=== PATIENT | female | born 1950 | race Caucasian/White ===

== ENCOUNTER 2017-12-04 08:45 | Outpatient (CLI) | payer OTHER ==
--- NOTE | 2017-12-04 14:23 | NM ---
NUCLEAR MEDICINE BRAIN IMAGING: Date: 12/04/17 HISTORY: Vascular Parkinson's, change in cognitive behavior, tremors, imbalance in gait and falls. TECHNIQUE: A DaTscan with axial tomographic images of the brain was obtained 3 hours following the intravenous a dministration of 14.5 mCi Iodine-123 Ioflupane. The patient was treated with 130 mg of potassium iodi de orally 1 hour prior to the injection. FINDINGS: There is loss of symmetry in the tracer localization in the striata bilaterally with a comma shape on the left and oval shape on the right. IMPRESSION: Findings are consistent with Parkinsonian syndrome. POS: [facility]
== END 2017-12-04 08:46 | disposition home or self-care (01) ==
LOC: NM 08:45
PROVIDERS: ATTEND Psychiatry & Neurology Neurology
DX: G21.4 Vascular parkinsonism (principal)
CPT/HCPCS: 78607; A9584

== ENCOUNTER 2018-01-14 16:23 | Inpatient (IN) | payer OTHER ==
[~2018-01-14 16:23] MED LIST: Dexamethasone 20 MG/5 ML VIAL ONE; Lidocaine 1% PF 5 ML VIAL ONE; Ondansetron HCl/PF 4 MG/2 ML Vial ONE; PHENYLEPHRINE-NS 100 MCG/ML 10 ML SYRINGE ONE; PROPOFOL 200 MG/20 ML VIAL ONE; Succinylcholine Chloride 20 MG/ML 10 ml SYRINGE FS ONE; ePHEDrine/0.9% NaCl/PF SYRINGE 50 mg/10 ml ONE
[2018-01-14 17:57] LABS: ALT (SGPT) 8 U/L (8-55); AST (SGOT) 10 U/L (5-34); Albumin 3.8 g/dL (3.4-4.8); Alkaline Phosphatase 96 U/L (40-150); Anion Gap 14 mmol/L (10-20); BUN (Urea Nitrogen) 10 mg/dL (9.8-20.1); Bilirubin, Total 0.8 mg/dL (0.2-1.2); Calc. Creatinine Clearance 0 mL/min (70-130); Calcium 9.3 mg/dL (7.8-10.44); Carbon Dioxide 22 mmol/L (23-31); Chloride 100 mmol/L (98-107); Estimated GFR-MDRD 49; Globulin 3.1 g/dL (2.4-3.5); Glucose 198 mg/dL (80-115); Lipase 16 U/L (8-78); Potassium 3.9 mmol/L (3.5-5.1); Protein, Total 6.9 g/dL (6.0-8.3); Sodium 132 mmol/L (136-145)
[2018-01-14 18:01] LABS: Hemoglobin 13.9 g/dL (12.0-16.0); Mean Corpuscular HGB CONC 33.9 g/dL (32.0-36.0); Mean Corpuscular Hemoglobin 29.3 pg (27.0-31.0); Mean Corpuscular Volume 86.4 fl (81.0-99.0); Platelet Count 244 thou/uL (130-400); RBC Distribution Width 11.8 % (11.5-14.5); Red Blood Cell (RBC) Count 4.73 mill/uL (4.20-5.40); White Blood Cell (WBC) Count 20.2 thou/uL (4.8-10.8)
[2018-01-14 18:14] LABS: Band 9 % (5-11); Lymphocytes 11 % (21-51); MDiff Complete? YES; Monocytes 5 % (0-10); Neutrophil 74 % (42-75); PLT Morphology Comment Appears Adequate; RBC Morphology Normal; Reactive Lymphocytes 1 % (0-10)
[2018-01-14 18:41] LABS: CKMB 0.3 ng/mL (0-6.6); Troponin I Less than 0.010 ng/mL (< 0.028)
[2018-01-14 18:49] LABS: Bilirubin Small (Negative); Blood, Urine Trace (Negative); Glucose, Urine (Dipstick) Negative (Negative); Leukocyte Moderate (Negative); Nitrite Positive (Negative); Protein, Urine (Dipstick) 30 mg/dL (Neg-Trace); Specific Gravity, Urine 1.025 (1.005-1.030); Urobilinogen 0.2 mg/dL (0.2-1.0)
[2018-01-14 18:50] LABS: Bacteria/HPF 4+ HPF (None Seen)
[2018-01-14 18:51] LABS: Clarity Cloudy (Clear)
[2018-01-14 18:52] LABS: Pathc Cast-AUWi Flag 6.19 (0-2.49); Yeast-AUWi Flag 54.7 (0-25.0)
[2018-01-14 19:01] LABS: Hyaline Casts/LPF 0-3 HYALINE CAST LPF (0-3 Hyaline); Other Casts/LPF None Seen LPF (0-3 Hyaline)
[2018-01-14 19:02] LABS: Crystals/HPF None Seen HPF (Negative); Yeast-All Forms None Seen HPF (None Seen)
--- NOTE | 2018-01-14 19:36 | CT ---
CT OF THE ABDOMEN AND PELVIS WITHOUT CONTRAST 01/14/18 COMPARISON: None. HISTORY: Left sided abdominal pain. Possible diabetic ketoacidosis. Suprapubic abdominal pain and vaginal disc harge. History of kidney stones. TECHNIQUE: Multiple contiguous axial images were obtained in a CT of the abdomen and pelvis without contrast. Co tonya reformats were performed. FINDINGS: There is a 6 mm calcification in the mid portion of the left ureter with moderate left hydronephrosis . A small 4 mm calcification is seen in the lower pole of the left kidney. No other calcifications ar e seen in either renal collecting system and no calcifications are seen in the right kidney. No calci fications are seen in the urinary bladder. The liver, gallbladder, adrenal glands, spleen, and pancreas are unremarkable. No free air, free flui d or stranding changes are seen in the abdomen or pelvis. The reproductive organs are unremarkable. The large and small bowel are unremarkable. The appendix is normal. No abdominal or pelvic lymphadenopathy are seen. Atherosclerotic calcifications are seen in the aorta. Degenerative changes are seen in the spine. The visualized inferior thorax and abdominal wall soft ti ssues are unremarkable. IMPRESSION: 1. Left mid ureteral calcification with moderate left hydronephrosis. 2. Nonobstructing left renal calcification. POS: [facility]
[2018-01-14] MEDS ORDERED: Acetaminophen 500 MG TAB ONE (19:48)
[2018-01-14] MEDS ORDERED: Ondansetron HCl/PF 4 MG/2 ML Vial IVP PRN ×5 (20:41→22:28)
[2018-01-14] MEDS ORDERED: HumaLOG 300 UNITS/3 ML VIAL SC PRN ×2 (20:41)
[2018-01-14] MEDS ORDERED: Dextrose 50% Abboject 50 ML SYRINGE SLOW IVP PRN (20:41)
[2018-01-14] MEDS ORDERED: Dextrose 5% in Water 1,000 ML IV PRN (20:41)
[2018-01-14] MEDS ORDERED: Iothalamate Meglumine 60% 50 ML VIAL FS ONE (20:50)
[2018-01-14] MEDS ORDERED: Fentanyl 250 MCG/5 ML VIAL ONE (21:18)
[2018-01-14] MEDS ORDERED: Meropenem 2 GM in Sodium Chloride 0.9% 100 ML IVPB SCH (21:30)
[2018-01-14] MEDS ORDERED: Promethazine HCl 25 MG/ML VIAL SLOW IVP PRN ×4 (22:14→22:28)
[2018-01-14] MEDS ORDERED: Promethazine HCl 25 MG/ML VIAL IM PRN ×4 (22:14→22:28)
[2018-01-14] MEDS ORDERED: Morphine Sulfate 2 MG/ML SYRINGE SLOW IVP PRN ×2 (22:28)
--- NOTE | 2018-01-14 22:35 | RAD ---
RETROGRADE IVP 01/14/18 COMPARISON: CT abdomen/pelvis 01/14/18. HISTORY: Left sided hydronephrosis and sepsis. Left ureteral calcification. FINDINGS/IMPRESSION: Multiple limited intraoperative fluoroscopic views from retrograde IVP were submitted for interpretat ion. A wire is seen on the first image. This is eventually followed by a double-J ureteral stent whic h appears in good position. The calcifications seen on CT is not obviously seen on these limited fluo roscopic images. POS: [facility]
[2018-01-14] MEDS: Sodium Chloride 0.9% 1,000 ML IV SCH (23:00)
[2018-01-14 23:19] VITALS: BMI 31.9
[2018-01-14] MEDS ORDERED: Vancomycin HCl 1.25 GM in Sodium Chloride 0.9% 250 ML 250 ML IVPB SCH (23:45)
[2018-01-14] MEDS: Famotidine/PF 20 mg/2ml Vial SLOW IVP SCH (23:48)
--- NOTE | 2018-01-15 00:31 | HP ---
REASON FOR ADMISSION: Sepsis, left moderate hydronephrosis with ureterolithiasis. HISTORY OF PRESENT ILLNESS: Patient came to ER with complaints of left-sided abdominal pain in the lower quadrant going towards her groin. This has been off and on from last two weeks. She finally made it to emergency room today as the pain was getting worse. On arrival, she had a temperature of 101.4. The patient has had a CAT scan done which shows left mid ureteral calcification with moderate left hydronephrosis. The patient also had a white count of 20 and has had cultures drawn, given one dose of ceftriaxone 2 grams here. No complaints of cough or expectoration. No complaints of chest pain, palpitation , PND, or orthopnea. Patient normally ambulates with a cane. The patient states she has had prior history of stone in her kidneys and has had laser done for it, does not recall who the urologist was. PAST MEDICAL AND SURGICAL HISTORY: History of dementia, Parkinson disease, depression, diabetes mellitus type 2, hypertension, dyslipidemia, hernia repair. CURRENT MEDICATIONS: The patient is on gabapentin 300 mg p.o. 3 times daily, bupropion extended release 300 mg q.a.m., sertraline 200 mg daily, clonazepam 1 mg twice daily, omega 3 fatty acids 2 grams p.o. twice daily, aspirin 81 mg daily, trazodone at bedtime, donepezil 23 mg daily, atorvastatin 20 mg at bedtime, Nexium 40 mg at bedtime, potassium chloride extended release 20 mEq daily, cyclobenzaprine p.r.n., metformin 500 mg p.o. twice daily, topiramate 50 mg p.o. twice daily, Sinemet 25/100 mg twice daily, Seroquel 300 mg at bedtime, Levemir 5 units q.a.m. and 10 units q.p.m., multivitamin 1 tab once daily. ALLERGIES: No known drug allergies. PERSONAL HISTORY: Does not abuse alcohol or drugs. The patient quit smoking 20 years ago, prior to which has smoked one pack a day for nearly 30 years. She stays with her daughter, ambulates with a cane. FAMILY HISTORY: The patient does not know much about her mother, father at the age of 78 years and has had history of coronary artery disease. Power of assistant prosecuting attorney is her daughter, her name is Rachelle Jauregui. REVIEW OF SYSTEMS: The following complete review of systems was negative, unless otherwise mentioned in the HPI or below: Constitutional: Weight loss or gain, ability to conduct usual activities. Skin: Rash, itching. Eyes: Double vision, pain. ENT/Mouth: Nose bleeding, neck stiffness, pain, tenderness. Cardiovascular: Palpitations, dyspnea on exertion, orthopnea. Respiratory: Shortness of breath, wheezing, cough, hemoptysis, fever or night sweats. Gastrointestinal: Poor appetite, abdominal pain, heartburn, nausea, vomiting, constipation, or diarrhea. Genitourinary: Urgency, frequency, dysuria, nocturia. Musculoskeletal: Pain, swelling. Neurologic/Psychiatric: Anxiety, depression. Allergy/Immunologic: Skin rash, bleeding tendency. PHYSICAL EXAMINATION: GENERAL: The patient is a 67-year-old female who is currently not in any pain. VITAL SIGNS: Blood pressure 124/76, pulse 96 per minute, respiratory rate 20 per minute, temperature 101.4 rectal on arrival, saturating 95% on room air. NECK: Supple. No elevated JVD. HEENT: Eyes, extraocular muscles intact. Pupils reacting to light. Oral cavity mucous membranes are dry. No exudates or congestion. CARDIOVASCULAR: S1, S2 heard. Regular rhythm. RESPIRATORY: Air entry 1+ bilaterally. No rales or rhonchi. ABDOMEN: Soft, bowel sounds heard. No tenderness, rigidity, or guarding. No CVA angle tenderness. EXTREMITIES: No peripheral edema or calf tenderness. VASCULAR: Peripheral pulses 1+ bilateral. No ischemic ulcerations or gangrene. CENTRAL NERVOUS SYSTEM: No gross focal deficits seen. Patient is awake and fairly oriented, but she does have issues with memory and cannot recall some events including medications. PSYCHIATRIC: No obvious hallucinations or delusions. LABORATORY AND X-RAY FINDINGS: White count of 20, H and H 13 and 40, platelet count 244,000, MCV is 86 with 74% neutrophils, 9% bands. Sodium 132, serum bicarbonate 22, BUN 10, creatinine 1.1, serum glucose 198. Lactic acid 2.4. Liver enzymes within normal limits. First set of cardiac enzymes are negative. Lipase is 16. UA shows positive nitrite, moderate leukocyte esterase, greater than 50 wbc's and 4+ bacteria. CT abdomen and pelvis done shows left mid ureteral calcification with moderate left hydronephrosis. There is nonobstructing left renal calcification as well. EKG done shows sinus tachycardia at 102 beats per minute. There is nonspecific ST-T wave changes. CLINICAL IMPRESSION AND PLAN: The patient will be admitted to IMCU for sepsis with left hydronephrosis with a stone on the left side. I have spoken to Dr. Tompkins who will be doing a cystoscopy with likely stenting tonight. She will be kept n.p.o. for the procedure as patient might get worse with instrumentation tonight, she will be placed in IMCU. She will be on normal saline at 100 mL per hour. She has received 2 grams of ceftriaxone in the ER and will also add Levaquin along with vancomycin for now. Blood and urine cultures have been obtained. Please note patient is on multiple psychotropic medications and accurate medication list needs to be obtained in the morning from her pharmacy. We will continue to closely monitor her in IMCU. I have spoken to Ms. Rachelle Jauregui daughter who patient is staying now, the number to reach her is [phone] and have given a complete update. CODE STATUS: FULL. MTDD
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
--- NOTE | 2018-01-15 03:01 | OP ---
DATE OF SERVICE: 01/14/2018 PREOPERATIVE DIAGNOSES: 1. A 67-year-old female with history of fever, leukocytosis with left hydronephrosis secondary to 6 mm left proximal ureteral calculi at the level of L3-L4. 2. Nonobstructing left lower pole stone measuring 4 mm. POSTOPERATIVE DIAGNOSES: 1. A 67-year-old female with history of fever, leukocytosis with left hydronephrosis secondary to 6 mm left proximal ureteral calculi at the level of L3-L4. 2. Nonobstructing left lower pole stone measuring 4 mm. PROCEDURE: Cystoscopy, left 6 x 24 double-J ureteral stent. ANESTHESIA: General. COMPLICATIONS: None apparent. DISPOSITION: To the recovery room. INDICATIONS FOR THE PROCEDURE AND HISTORY: Ms. Jauregui is a 67-year-old female who presented to the emergency room with 1-2 week history of left flank pain, subjective history of malaise, found to have leukocytosis of 20,000, urinalysis consistent with UTI, lactic acid of 2.[address] demonstrating left hydronephrosis secondary to mid ureteral calculi. The patient with history of diabetes, presented with temperature of 101.4. She is hemodynamically stable; however, given the clinical scenario of early sepsis/SIRS, advised regarding cystoscopy, left stent placement. Risks and complications, indications was reviewed with patient and daughter in detail and she desired to proceed. Risks and complications including, but not limited to, bleeding, pain, infection, urosepsis, perioperative morbidity and mortality, and the need for secondary procedure of a staged ureteroscopy, laser lithotripsy at a later date was discussed with patient in detail. Indication for emergent surgical intervention to decompress the left collecting system due to infective ureteral stone with hydronephrosis with discussed with patient/daughter in detail. DESCRIPTION OF THE PROCEDURE: After an informed consent is signed, the patient is taken to the operating room, placed in a dorsal lithotomy position with the genital area prepped and draped in usual surgical sterile fashion. A 22 Urdu cystoscope was utilized for cystoscopy. Bilateral CHARLIE hose, SCDs, and broad- spectrum antibiotics with meropenem were provided. Upon entering the bladder, there was debris within the bladder consistent with cystitis. The UO was identified in normal anatomical location. An open-ended catheter was utilized to intubate the left UO and a 0.35 sensor wire was placed to the level of the left upper pole. I did not perform a retrograde, given her clinical scenario presenting UTI. A 6 x 24 double-J ureteral stent was passed without difficulty. Bladder was completely emptied. A 16 Urdu 10 mL Olivas catheter was placed. As there is concern regarding early sepsis, patient will be observed in an IMCU setting with broad spectrum antibiotics and strict control of her diabetes. GABRIEL
[2018-01-15 04:13] LABS: #Lymphocytes 1.3 thou/uL (1.20-3.40); #Monocytes 0.8 thou/uL (0.11-0.59); #Neutrophils 9.9 thou/uL (1.40-6.50); %Eosinophils 0.3 % (0.0-10.0); %Lymphocytes 10.8 % (21.0-51.0); %Monocytes 6.5 % (0.0-10.0); %Neutrophils 82.4 % (42.0-75.0); Hemoglobin 12.2 g/dL (12.0-16.0); Mean Corpuscular HGB CONC 32.4 g/dL (32.0-36.0); Mean Corpuscular Volume 89.3 fl (81.0-99.0); Platelet Count 198 thou/uL (130-400); RBC Distribution Width 11.7 % (11.5-14.5); Red Blood Cell (RBC) Count 4.23 mill/uL (4.20-5.40)
[2018-01-15 04:30] LABS: Anion Gap 12 mmol/L (10-20); BUN (Urea Nitrogen) 9 mg/dL (9.8-20.1); Calc. Creatinine Clearance 80 mL/min (70-130); Calcium 8.5 mg/dL (7.8-10.44); Carbon Dioxide 22 mmol/L (23-31); Chloride 109 mmol/L (98-107); Estimated GFR-MDRD 64; Glucose 242 mg/dL (80-115); Potassium 4.7 mmol/L (3.5-5.1); Sodium 138 mmol/L (136-145)
[2018-01-15] MEDS: Sodium Chloride 0.9% 1,000 ML IV SCH ×2 (05:58→16:12)
[2018-01-15] MEDS: Acetaminophen 325 MG TAB PO PRN (07:30)
--- NOTE | 2018-01-15 08:17 | PRG ---
DATE OF SERVICE: 01/15/2018 SUBJECTIVE: The patient is alert, states that her flank pain has significantly improved. Denies chills. PHYSICAL EXAMINATION: VITAL SIGNS: Stable, afebrile, 98.2, 85, 16, 96, 115/65. I's and O's 877 in, 1500 out. She is negative 6.23 liters. ABDOMEN: Soft, obese, protuberant. No significant flank or abdominal discomfort is appreciated. GENITOURINARY: Olivas catheter secured demonstrating clear dilute urine. PERTINENT LABORATORY DATA: White count is decreased from 20,000->12,000, hemoglobin 12, platelet 193, 82 segs. Renal function improved from creatinine of 1.1->0.8, which is her baseline. Blood sugars have been running, 150-224. Lactic acid level this morning has normalized. IMPRESSION AND PLAN: Ms. Jauregui is a 67-year-old female with history of dementia , diabetes, Parkinson's, who presented with history of fever of 101.4, leukocytosis with obstructing left ureteral stone. 1. Left hydronephrosis secondary to 6 mm left proximal ureteral calculi, nonobstructing left lower pole stone, 4 mm, postop day #1 status post left ureteral stent. The patient is convalescing well. Her septic /SIRS parameters have significantly improved with improvement of her leukocytosis. From a urologic perspective, patient may be transferred to a regular floor. Recommend patient to stay in house until urine culture sensitivity returns for appropriate oral atb transition. Currently on Levaquin and vancomycin per primary service. She is responding, may continue current antibiotic regimen. As she is hemodynamically stable, Olivas catheter may be removed with strict I's and O's to be continued. MTDD
[2018-01-15] MEDS ORDERED: Non-Formulary Item 1 EACH (Levemir Flexpen [Levemir Flexpen] 10 UNIT) SC SCH ×2 (09:00)
[2018-01-15] MEDS: Famotidine/PF 20 mg/2ml Vial SLOW IVP SCH ×2 (10:07→20:48)
[2018-01-15] MEDS: Docusate 100 MG CAP PO SCH (10:08)
[2018-01-15] MEDS: Bupropion 150 MG XL TAB PO SCH (10:08)
[2018-01-15] MEDS: Insulin Detemir 100 UNITS/ML 10 UNITS in Pre-Filled Syringe 1 EACH SC SCH (10:09)
[2018-01-15] MEDS ORDERED: cefTRIAXone\\ROCEPHIN 2 GM in Sodium Chloride 0.9% 100 ML IVPB SCH (20:00)
[2018-01-15] MEDS ORDERED: Vancomycin HCl 1.25 GM in Sodium Chloride 0.9% 250 ML 250 ML IVPB SCH (22:00)
[2018-01-16] MEDS: Acetaminophen 325 MG TAB PO PRN ×2 (01:10→10:16)
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
[2018-01-16] MEDS: Sodium Chloride 0.9% 1,000 ML IV SCH ×2 (05:43→17:54)
[2018-01-16] MEDS ORDERED: HYDROcodone/Acetaminophen 5/325 mg Tablet PO PRN ×2 (07:58)
--- NOTE | 2018-01-16 08:34 | PRG ---
DATE OF SERVICE: 01/16/2018 SUBJECTIVE: The patient denies history of fever and chills, feels better; however, has some left mid lower quadrant abdominal discomfort, likely consistent with stent discomfort. However, the patient has been not provide any pain medication upon medication review. Denies fever. PHYSICAL EXAMINATION: VITAL SIGNS: Stable, afebrile, 98.6, 82, 16, 98, 141/79. The patient has also been incontinent. Strict I's and O's have been difficult. ABDOMEN: Soft. There is no rigidity, no rebound, no CVA tenderness is appreciated. PERTINENT LABORATORY: Yesterday her white count did decrease to 12, hemoglobin 12, platelet 198. Renal function stable at 0.8 yesterday. Final urine culture results E. coli which is pansensitive. Blood culture is negative. ASSESSMENT AND PLAN: Ms. Jauregui is a 67-year-old female with past medical history of: 1. Parkinson's. 2. Diabetes. She presented with fever, leukocytosis secondary to urinary tract infection with obstructing left ureteral stone. She is postop day #2 status post cystoscopy, left stent. We will obtain KUB this morning for staging. Final culture has been resulted which demonstrates E. coli pansensitive, blood culture negative. As such, the patient may be discharged with ciprofloxacin for a course of 14 days. She will follow up in my office next Saturday at 1:45 in which a repeat UA and C&S will be obtained, if negative, we will proceed with staged ureteroscopy, laser lithotripsy. The patient has been informed. Appointment in chart. I also provided prescription which include ciprofloxacin for 14 days, Myrbetriq 50 mg 1 p.o. daily for bladder spasms, [place]) p.r.n. Trina Newton prescription in chart. Discontinue vancomycin and Rocephin , continue Levaquin while in house. Discharge when medically stable. will sign off MTDD
--- NOTE | 2018-01-16 08:45 | PDOC.PN ---
- Subjective Encounter Start Date: 01/15/18 Encounter Start Time: 15:00 Subjective: nsg notes rev, dayana ovn, no new c/o, d/w patient's dtr on the phone -: overall feels better, still some abd discomfort but less so than on adm -: tolerating PO, no BM today yet, no fevers/ chills - Objective Vital Signs & Weight: Vital Signs (12 hours) Temp Pulse Resp BP BP Pulse Ox 01/16/18 07:34 98.6 F 82 16 98 01/16/18 07:20 98.6 F 82 16 141/79 H 98 01/16/18 04:00 97.8 F 75 18 132/65 95 01/16/18 00:00 99 F 77 18 127/64 96 Weight Weight 174 lb 12.8 oz I&O: 01/15/18 01/16/18 01/17/18 06:59 06:59 06:59 Intake Total 877 1920 Output Total 1500 750 Balance -623 1170 Result Diagrams: 01/15/18 03:38 01/15/18 03:38 Additional Labs: Accuchecks 01/16/18 01/16/18 01/15/18 05:47 00:02 18:33 POC Glucose 93 102 83 01/15/18 11:41 POC Glucose 129 H Phys Exam - Physical Examination Constitutional: NAD HEENT: PERRLA, moist MMs, sclera anicteric Neck: no nodes Respiratory: no wheezing, no rales, no rhonchi, clear to auscultation bilateral Cardiovascular: RRR, no significant murmur, no rub Gastrointestinal: soft, no distention, positive bowel sounds Musculoskeletal: no edema, pulses present Neurological: moves all 4 limbs Dx/Plan - Plan * 67F who p/w abd pain * * nephrolithiasis with hydronephrosis and complicated UTI * pending culture sensitivities * continue empiric abx * apprec urology c/s * s/p stent * pain control sepsis on adm, resolved extensive psychiatric hx - continue home regimen diet: as callum activity: as callum dvt ppx Review of Systems - Medications/Allergies Allergies/Adverse Reactions: Allergies Allergy/AdvReac Type Severity Reaction Status Date / Time No Known Drug Allergies Allergy Verified 01/25/17 00:34 Medications: Current Medications Acetaminophen (Tylenol) 650 mg PO Q4H PRN PRN Reason: Headache/Fever or Pain Last Admin: 01/16/18 10:16 Dose: 650 mg Hydrocodone Bitart/Acetaminophen ([place] 5/325) 1 tab PO Q4H PRN PRN Reason: Mild Pain (1-3) Hydrocodone Bitart/Acetaminophen ([place] 5/325) 2 tab PO Q4H PRN PRN Reason: Moderate Pain (4-6) Bupropion HCl (Wellbutrin Xl) 300 mg PO DAILY [facility] Last Admin: 01/16/18 10:09 Dose: 300 mg Dextrose/Water (Dextrose 50%) 25 gm SLOW IVP PRN PRN PRN Reason: Hypoglycemia Docusate Sodium (Colace) 100 mg PO DAILY [facility] Last Admin: 01/16/18 10:10 Dose: Not Given Docusate Sodium (Colace) 100 mg PO BID [facility] Last Admin: 01/16/18 10:10 Dose: Not Given Famotidine (Pepcid) 20 mg SLOW IVP Q12HR [facility] Last Admin: 01/16/18 10:10 Dose: 20 mg Glucagon (Glucagon) 1 mg IM PRN PRN PRN Reason: Hypoglycemia Dextrose/Water (D5w) 1,000 mls @ 0 mls/hr IV .Q0M PRN; As Directed PRN Reason: Hypoglycemia Levofloxacin 500 mg/ Device 100 mls @ 100 mls/hr IVPB Q24HR [facility] Last Admin: 01/15/18 21:48 Dose: 100 mls Sodium Chloride (Normal Saline 0.9%) 1,000 mls @ 100 mls/hr IV .Q10H [facility] Last Admin: 01/16/18 05:43 Dose: 1,000 mls Insulin Detemir 10 units/ (Miscellaneous Medication) 0.1 mls @ 0 mls/hr SC QAM [facility] Last Admin: 01/16/18 10:10 Dose: 0.1 mls Insulin Human Lispro (Humalog) 0 units SC .MILD SLIDING SCALE PRN PRN Reason: Mild Correctional Scale Insulin Human Lispro (Humalog) 0 units SC .BEDTIME SLIDING SC PRN PRN Reason: Bedtime Correctional Scale Mirabegron (Myrbetriq Er) 25 mg PO DAILY [facility] Last Admin: 01/16/18 10:11 Dose: 25 mg Ondansetron HCl (Zofran) 4 mg IVP Q6H PRN PRN Reason: Nausea/Vomiting Donepezil Hcl 23 Mg 0 each PO DAILY [facility] Sertraline HCl (Zoloft) 100 mg PO QAM [facility] Last Admin: 01/16/18 10:11 Dose: 100 mg Sodium Chloride (Flush - Normal Saline) 10 ml IVF Q12HR [facility] Last Admin: 01/16/18 10:12 Dose: Not Given Sodium Chloride (Flush - Normal Saline) 10 ml IVF PRN PRN PRN Reason: Saline Flush
--- NOTE | 2018-01-16 09:07 | RAD ---
SUPINE KUB: Date: 01-16-18 Comparison: 01-14-18 History: Left ureteral stent. FINDINGS: A left double J ureteral stent is in place. Evaluation of the region of the left renal shadow is limi daron on the basis of stool and bowel gas within the colon. There is no discrete calcification seen minesh ng the course of the left double J ureteral stent. There is multilevel lower lumbar spine degenerativ e change. The bowel gas pattern appears nonobstructed. IMPRESSION: Left double J ureteral stent in place. POS: [facility]
[2018-01-16] MEDS: Bupropion 150 MG XL TAB PO SCH (10:09)
[2018-01-16] MEDS: Insulin Detemir 100 UNITS/ML 10 UNITS in Pre-Filled Syringe 1 EACH SC SCH (10:10)
[2018-01-16] MEDS: Famotidine/PF 20 mg/2ml Vial SLOW IVP SCH ×2 (10:10→21:14)
[2018-01-16] MEDS: Docusate 100 MG CAP PO SCH ×3 (10:10→21:16)
--- NOTE | 2018-01-16 16:38 | PDOC.PN ---
- Subjective Encounter Start Date: 01/16/18 Encounter Start Time: 13:00 Subjective: nsg notes rev, dayana ovn, no new c/o, no fevers/ chills, overall feels a -: little better, wnats to know if she can get "one more dose of the strong -: IV meds" - Objective Vital Signs & Weight: Vital Signs (12 hours) Temp Pulse Resp BP Pulse Ox 01/16/18 11:29 97.7 F 74 14 140/66 98 01/16/18 07:34 98.6 F 82 16 98 01/16/18 07:20 98.6 F 82 16 141/79 H 98 Weight Weight 174 lb 12.8 oz I&O: 01/15/18 01/16/18 01/17/18 06:59 06:59 06:59 Intake Total 877 1920 1020 Output Total 1500 750 Balance -623 1170 1020 Result Diagrams: 01/15/18 03:38 01/15/18 03:38 Additional Labs: Accuchecks 01/16/18 01/16/18 01/16/18 11:20 05:47 00:02 POC Glucose 113 H 93 102 01/15/18 18:33 POC Glucose 83 Phys Exam - Physical Examination Constitutional: NAD HEENT: PERRLA, moist MMs, sclera anicteric Respiratory: no wheezing, no rales, no rhonchi, clear to auscultation bilateral Cardiovascular: RRR, no significant murmur, no rub Gastrointestinal: soft, no distention, positive bowel sounds slightly tender to deep palpation of RLQ Musculoskeletal: no edema, pulses present Neurological: moves all 4 limbs Psychiatric: normal affect, A&O x 3 Dx/Plan - Plan * 67F who p/w abd pain * * nephrolithiasis with hydronephrosis and complicated UTI * urine culture humphrey sensitive * blood culture NGTD * transition IV to PO abx * apprec urology c/s * s/p stent * pain control sepsis on adm, resolved extensive psychiatric hx - continue home regimen diet: as callum activity: as callum dvt ppx Review of Systems - Medications/Allergies Allergies/Adverse Reactions: Allergies Allergy/AdvReac Type Severity Reaction Status Date / Time No Known Drug Allergies Allergy Verified 01/25/17 00:34 Medications: Current Medications Acetaminophen (Tylenol) 650 mg PO Q4H PRN PRN Reason: Headache/Fever or Pain Last Admin: 01/16/18 10:16 Dose: 650 mg Hydrocodone Bitart/Acetaminophen ([place] 5/325) 1 tab PO Q4H PRN PRN Reason: Mild Pain (1-3) Hydrocodone Bitart/Acetaminophen ([place] 5/325) 2 tab PO Q4H PRN PRN Reason: Moderate Pain (4-6) Bupropion HCl (Wellbutrin Xl) 300 mg PO DAILY [facility] Last Admin: 01/16/18 10:09 Dose: 300 mg Dextrose/Water (Dextrose 50%) 25 gm SLOW IVP PRN PRN PRN Reason: Hypoglycemia Docusate Sodium (Colace) 100 mg PO DAILY [facility] Last Admin: 01/16/18 10:10 Dose: Not Given Docusate Sodium (Colace) 100 mg PO BID [facility] Last Admin: 01/16/18 10:10 Dose: Not Given Famotidine (Pepcid) 20 mg SLOW IVP Q12HR [facility] Last Admin: 01/16/18 10:10 Dose: 20 mg Glucagon (Glucagon) 1 mg IM PRN PRN PRN Reason: Hypoglycemia Dextrose/Water (D5w) 1,000 mls @ 0 mls/hr IV .Q0M PRN; As Directed PRN Reason: Hypoglycemia Levofloxacin 500 mg/ Device 100 mls @ 100 mls/hr IVPB Q24HR [facility] Last Admin: 01/15/18 21:48 Dose: 100 mls Sodium Chloride (Normal Saline 0.9%) 1,000 mls @ 100 mls/hr IV .Q10H [facility] Last Admin: 01/16/18 05:43 Dose: 1,000 mls Insulin Detemir 10 units/ (Miscellaneous Medication) 0.1 mls @ 0 mls/hr SC QAM [facility] Last Admin: 01/16/18 10:10 Dose: 0.1 mls Insulin Human Lispro (Humalog) 0 units SC .MILD SLIDING SCALE PRN PRN Reason: Mild Correctional Scale Insulin Human Lispro (Humalog) 0 units SC .BEDTIME SLIDING SC PRN PRN Reason: Bedtime Correctional Scale Mirabegron (Myrbetriq Er) 25 mg PO DAILY [facility] Last Admin: 01/16/18 10:11 Dose: 25 mg Ondansetron HCl (Zofran) 4 mg IVP Q6H PRN PRN Reason: Nausea/Vomiting Donepezil Hcl 23 Mg 0 each PO DAILY [facility] Sertraline HCl (Zoloft) 100 mg PO QAM [facility] Last Admin: 01/16/18 10:11 Dose: 100 mg Sodium Chloride (Flush - Normal Saline) 10 ml IVF Q12HR [facility] Last Admin: 01/16/18 10:12 Dose: Not Given Sodium Chloride (Flush - Normal Saline) 10 ml IVF PRN PRN PRN Reason: Saline Flush
[2018-01-17] MEDS: Sodium Chloride 0.9% 1,000 ML IV SCH ×3 (00:09→14:46)
[2018-01-17] MEDS: Insulin Detemir 100 UNITS/ML 10 UNITS in Pre-Filled Syringe 1 EACH SC SCH (08:52)
[2018-01-17] MEDS: Bupropion 150 MG XL TAB PO SCH (08:53)
[2018-01-17] MEDS: Docusate 100 MG CAP PO SCH ×3 (08:53→20:41)
[2018-01-17] MEDS: Famotidine 20 MG TAB PO SCH ×2 (09:39→20:41)
[2018-01-17] MEDS: Famotidine/PF 20 mg/2ml Vial SLOW IVP SCH (10:09)
[2018-01-17 13:21] LABS: #Basophils 0.1 thou/uL (0.0-0.2); #Eosinphils 0.2 thou/uL (0.0-0.7); #Lymphocytes 2.3 thou/uL (1.20-3.40); #Neutrophils 4.3 thou/uL (1.40-6.50); %Basophils 0.7 % (0.0-1.0); %Eosinophils 3.1 % (0.0-10.0); %Lymphocytes 29.4 % (21.0-51.0); %Monocytes 12.5 % (0.0-10.0); %Neutrophils 54.2 % (42.0-75.0); Mean Corpuscular HGB CONC 34.4 g/dL (32.0-36.0); Mean Corpuscular Hemoglobin 30.4 pg (27.0-31.0); Mean Corpuscular Volume 88.3 fl (81.0-99.0); Platelet Count 287 thou/uL (130-400); RBC Distribution Width 11.6 % (11.5-14.5); Red Blood Cell (RBC) Count 3.94 mill/uL (4.20-5.40); White Blood Cell (WBC) Count 7.9 thou/uL (4.8-10.8)
[2018-01-17 13:43] LABS: Anion Gap 12 mmol/L (10-20); BUN (Urea Nitrogen) 4 mg/dL (9.8-20.1); Calc. Creatinine Clearance 99 mL/min (70-130); Calcium 8.5 mg/dL (7.8-10.44); Carbon Dioxide 24 mmol/L (23-31); Chloride 108 mmol/L (98-107); Estimated GFR-MDRD 83; Glucose 121 mg/dL (80-115); Sodium 141 mmol/L (136-145)
[2018-01-17 13:46] LABS: Potassium 2.9 mmol/L (3.5-5.1)
[2018-01-17] MEDS ORDERED: Potassium Chloride 20 MEQ TAB PO SCH ×2 (18:15)
[2018-01-17] MEDS: Acetaminophen 325 MG TAB PO PRN (19:42)
[2018-01-17] MEDS ORDERED: Donepezil HCl 10 MG TAB PO SCH (21:00)
--- NOTE | 2018-01-17 23:19 | PDOC.PN ---
- Subjective Encounter Start Date: 01/17/18 Encounter Start Time: 13:00 Subjective: nsg notes rev, dayana ovn, no new c/o, denies any cramping, abd -: pain from yesterday is improved - Objective Vital Signs & Weight: Vital Signs (12 hours) Temp Pulse Resp BP BP Pulse Ox 01/17/18 20:00 97.9 F 77 20 153/77 H 97 01/17/18 15:11 98.6 F 78 16 180/83 H 96 Weight Weight 174 lb 12.8 oz I&O: 01/16/18 01/17/18 01/18/18 06:59 06:59 06:59 Intake Total 1920 2220 Output Total 750 1300 Balance 1170 2220 -1300 Result Diagrams: 01/17/18 13:08 01/17/18 13:08 Additional Labs: Accuchecks 01/17/18 01/17/18 01/17/18 21:48 16:10 11:08 POC Glucose 107 85 164 H 01/17/18 06:15 POC Glucose 138 H Phys Exam - Physical Examination Constitutional: NAD HEENT: PERRLA, sclera anicteric Neck: no nodes Respiratory: no wheezing, no rales, no rhonchi, clear to auscultation bilateral Cardiovascular: RRR, no significant murmur, no rub Gastrointestinal: soft, non-tender, no distention, positive bowel sounds Neurological: moves all 4 limbs Dx/Plan - Plan * 67F who p/w abd pain * * nephrolithiasis with hydronephrosis and complicated UTI * urine culture humphrey sensitive * blood culture NGTD * transition IV to PO abx * apprec urology c/s * s/p stent * pain control - pain improved sepsis on adm, resolved extensive psychiatric hx - continue home regimen hypokalemia, unclear etiology * oral repletion * repeat BMP * continue monitor diet: as callum activity: as callum dvt ppx Review of Systems - Medications/Allergies Allergies/Adverse Reactions: Allergies Allergy/AdvReac Type Severity Reaction Status Date / Time No Known Drug Allergies Allergy Verified 01/25/17 00:34 Medications: Current Medications Acetaminophen (Tylenol) 650 mg PO Q4H PRN PRN Reason: Headache/Fever or Pain Last Admin: 01/17/18 19:42 Dose: 650 mg Hydrocodone Bitart/Acetaminophen ([place] 5/325) 1 tab PO Q4H PRN PRN Reason: Mild Pain (1-3) Hydrocodone Bitart/Acetaminophen ([place] 5/325) 2 tab PO Q4H PRN PRN Reason: Moderate Pain (4-6) Bupropion HCl (Wellbutrin Xl) 300 mg PO DAILY [facility] Last Admin: 01/17/18 08:53 Dose: 300 mg Dextrose/Water (Dextrose 50%) 25 gm SLOW IVP PRN PRN PRN Reason: Hypoglycemia Docusate Sodium (Colace) 100 mg PO DAILY [facility] Last Admin: 01/17/18 08:53 Dose: 100 mg Docusate Sodium (Colace) 100 mg PO BID [facility] Last Admin: 01/17/18 20:41 Dose: Not Given Donepezil HCl (Aricept) 20 mg PO HS [facility] Last Admin: 01/17/18 20:41 Dose: 20 mg Famotidine (Pepcid) 20 mg PO BID [facility] Last Admin: 01/17/18 20:41 Dose: 20 mg Glucagon (Glucagon) 1 mg IM PRN PRN PRN Reason: Hypoglycemia Dextrose/Water (D5w) 1,000 mls @ 0 mls/hr IV .Q0M PRN; As Directed PRN Reason: Hypoglycemia Sodium Chloride (Normal Saline 0.9%) 1,000 mls @ 100 mls/hr IV .Q10H [facility] Last Admin: 01/17/18 14:46 Dose: 1,000 mls Insulin Detemir 10 units/ (Miscellaneous Medication) 0.1 mls @ 0 mls/[facility] Last Admin: 01/17/18 08:52 Dose: 0.1 mls Insulin Human Lispro (Humalog) 0 units SC .MILD SLIDING SCALE PRN PRN Reason: Mild Correctional Scale Last Admin: 01/17/18 11:40 Dose: 2 unit Insulin Human Lispro (Humalog) 0 units SC .BEDTIME SLIDING SC PRN PRN Reason: Bedtime Correctional Scale Levofloxacin (Levaquin) 500 mg PO 0600 [facility] Mirabegron (Myrbetriq Er) 25 mg PO DAILY [facility] Last Admin: 01/17/18 09:38 Dose: 25 mg Sertraline HCl (Zoloft) [facility] Last Admin: 03/30/18 08:53 Dose: 100 mg Sodium Chloride (Flush - Normal Saline) 10 ml IVF Q12HR [facility] Last Admin: 01/17/18 20:44 Dose: Not Given Sodium Chloride (Flush - Normal Saline) 10 ml IVF PRN PRN PRN Reason: Saline Flush
[2018-01-18] MEDS: Sodium Chloride 0.9% 1,000 ML IV SCH ×2 (03:24→12:56)
[2018-01-18] MEDS: Insulin Detemir 100 UNITS/ML 10 UNITS in Pre-Filled Syringe 1 EACH SC SCH (08:25)
[2018-01-18] MEDS: Docusate 100 MG CAP PO SCH ×2 (08:26→09:01)
[2018-01-18] MEDS: Famotidine 20 MG TAB PO SCH (08:26)
[2018-01-18] MEDS: Bupropion 150 MG XL TAB PO SCH (08:26)
[2018-01-18 14:31] LABS: Anion Gap 13 mmol/L (10-20); BUN (Urea Nitrogen) 4 mg/dL (9.8-20.1); Calc. Creatinine Clearance 98 mL/min (70-130); Calcium 8.9 mg/dL (7.8-10.44); Carbon Dioxide 25 mmol/L (23-31); Chloride 107 mmol/L (98-107); Estimated GFR-MDRD 81; Glucose 149 mg/dL (80-115); Sodium 142 mmol/L (136-145)
[2018-01-18 15:26] VITALS: TEMP 98.2
[2018-01-18 16:44] VITALS: BP 153/82
--- NOTE | 2018-01-26 00:25 | EKG ---
Test Reason : Blood Pressure : / mmHG Vent. Rate : 102 BPM Atrial Rate : 102 BPM P-R Int : 150 ms QRS Dur : 070 ms QT Int : 328 ms P-R-T Axes : 040 000 079 degrees QTc Int : 427 ms Sinus tachycardia Nonspecific ST and T wave abnormality Abnormal ECG Confirmed by CLAYTON BARRERA ([id number]), editor school photograph OSWALDO HODGE ([id number]) on 01/26/2018 12:24:57 AM Referred By: Confirmed By:CLAYTON BARRERA
== END 2018-01-18 16:49 | disposition home or self-care (01) | DRG 872 ==
LOC: ERS 16:23 → SDC/OP 21:00 → IMCU/EMU 22:26 → SURG B 01-16 12:27
PROVIDERS: ADMIT Internal Medicine; ATTEND Internal Medicine
PROC: 0T778DZ Dilation of Left Ureter with Intraluminal Device, Via Natural or Artificial Opening Endoscopic (ICD-10-PCS; principal; 2018-01-14)
DX: A41.9 Sepsis, unspecified organism (principal); N39.0 Urinary tract infection, site not specified; N13.2 Hydronephrosis with renal and ureteral calculous obstruction; G20 Parkinson's disease; F02.80 Dementia in other diseases classified elsewhere, unspecified severity, without behavioral disturbance, psychotic disturbance, mood disturbance, and anxiety; E66.01 Morbid (severe) obesity due to excess calories; E11.9 Type 2 diabetes mellitus without complications; E78.5 Hyperlipidemia, unspecified; B96.20 Unspecified Escherichia coli [E. coli] as the cause of diseases classified elsewhere; F32.9 Major depressive disorder, single episode, unspecified; I10 Essential (primary) hypertension; F43.10 Post-traumatic stress disorder, unspecified; E87.6 Hypokalemia; Z68.32 Body mass index [BMI] 32.0-32.9, adult; Z87.891 Personal history of nicotine dependence; Z79.82 Long term (current) use of aspirin; Z79.4 Long term (current) use of insulin; Z79.899 Other long term (current) drug therapy
CPT/HCPCS: 36415; 36416; 74018; 74176; 74420; 80048; 80053; 81003; 81015; 82553; 83605; 83690; 84484; 85025; 87040; 87077; 87086; 87186; 93005; 94640; 96361; 96374; 96376; A4216; C1758; C1769; J0696; J1100; J1815; J1956; J2001; J2185; J2405; J2704; J3010; J3370; J7050; J7620; Q9961; S0028

== ENCOUNTER 2018-01-22 15:10 | Outpatient (CLI) | payer OTHER ==
[2018-01-22 16:49] LABS: Mean Corpuscular HGB CONC 32.9 g/dL (32.0-36.0); Mean Corpuscular Hemoglobin 29.6 pg (27.0-31.0); Platelet Count 351 thou/uL (130-400); RBC Distribution Width 12.7 % (11.5-14.5); White Blood Cell (WBC) Count 9.2 thou/uL (4.8-10.8)
[2018-01-22 16:56] LABS: PTT 32.8 SEC (22.9-36.1); Prothrombin Time 13.5 SEC (12.0-14.7)
[2018-01-22 17:08] LABS: Anion Gap 12 mmol/L (10-20); BUN (Urea Nitrogen) 6 mg/dL (9.8-20.1); Calc. Creatinine Clearance 0 mL/min (70-130); Calcium 9.3 mg/dL (7.8-10.44); Carbon Dioxide 21 mmol/L (23-31); Chloride 110 mmol/L (98-107); Estimated GFR-MDRD 73; Glucose 84 mg/dL (80-115); Potassium 3.9 mmol/L (3.5-5.1); Sodium 139 mmol/L (136-145)
== END 2018-01-22 15:11 | disposition home or self-care (01) ==
LOC: LABBT 15:10
PROVIDERS: ATTEND Urology
DX: Z01.812 Encounter for preprocedural laboratory examination (principal); N20.2 Calculus of kidney with calculus of ureter
CPT/HCPCS: 80048; 85027; 85610; 85730; 93005; 93010

== ENCOUNTER 2018-01-29 08:18 | Day surgery (SDC) | payer OTHER ==
[2018-01-22 15:27] VITALS: BMI 31.8
[2018-01-29] MEDS ORDERED: Iothalamate Meglumine 60% 50 ML VIAL FS ONE (09:04)
[2018-01-29] MEDS ORDERED: Piperacillin/Tazobactam 3.375 GM in Sodium Chloride 0.9% 100 ML IVPB SCH (09:15)
--- NOTE | 2018-01-29 10:24 | RAD ---
SINGLE VIEW ABDOMEN: Date: 01/29/18 COMPARISON: 01/16/18. CT abdomen/pelvis dated 01/14/18. HISTORY: Preoperative radiograph. Left urinary collecting system calculi. FINDINGS: An anterior view of the abdomen shows a left-sided double-J ureteral stent, which appears in good pos ition. There is possibly a calcification consistent with the lower pole of the left kidney. No obviou s calcifications are seen along the course of the stent. IMPRESSION: 1. Possible small left renal calcification. 2. Appropriate position of double-J ureteral stent. POS: [facility]
[2018-01-29] MEDS ORDERED: Fentanyl 100 MCG/2 ML VIAL ONE (10:40)
[2018-01-29] MEDS ORDERED: Ondansetron HCl/PF 4 MG/2 ML Vial ONE ×2 (10:40→15:49)
[2018-01-29] MEDS ORDERED: SUGAMMADEX SODIUM 200 MG/2 ML VIAL ONE (12:08)
--- NOTE | 2018-01-29 12:23 | RAD ---
RETROGRADE IVP: Date: 01/29/18 COMPARISON: Abdominal radiograph dated 01/29/18. FINDINGS/IMPRESSION: Multiple limited intraoperative fluoroscopic views from a retrograde IVP were submitted for interpret ation. The first image shows a double-J ureteral stent. There is a questionable calcification project ing over the lower pole of the left kidney, which was also seen on the KUB. There is also a possible calcification long the double-J ureteral stent. This is not seen on subsequent images and may be jessica factual. Eventually, a double-J is replaced in the left renal collecting system and there is no longe r visualization of either possible calcification. POS: [facility]
--- NOTE | 2018-01-29 12:43 | OP ---
DATE OF PROCEDURE: 01/29/2018 PREOPERATIVE DIAGNOSES: 1. A 67-year-old female with history of febrile urinary tract infection with obstructing left ureteral stone measuring 6 mm. 2. Nonobstructing left lower pole 4 mm stone. POSTOPERATIVE DIAGNOSES: 1. A 67-year-old female with history of febrile urinary tract infection with obstructing left ureteral stone measuring 6 mm. 2. Nonobstructing left lower pole 4 mm stone. PROCEDURE: Cystoscopy, left 6 x 24 double-J ureteral stent exchange with dangler taped to pubic symphysis, rigid ureteroscopy, laser lithotripsy of proximal ureteral calculi, basket extraction of stone fragments, flexible pyeloscopy, basket extraction of left lower pole stone. SURGEON: Gerri Tompkins D.O. ANESTHESIA: General. COMPLICATIONS: None apparent. DISPOSITION: To the recovery room in stable condition. SPECIMEN: Left ureteral calculi for chemical analysis, left lower pole stone for chemical analysis. INDICATIONS FOR THE PROCEDURE AND HISTORY: Ms. Jauregui is a 67-year-old female whom I have seen as an ER consultation due to left obstructing ureteral stone with fever of 101, leukocytosis of 20,000. Final urine culture demonstrated E. coli pansensitive. Blood culture negative. With an indwelling ureteral stent her fever defervesced, she did well postop and presents today for definitive stone treatment. Repeat urine culture is negative, she desires to proceed. The left ureteral stone is unable to be identified on a fluoroscopy KUB due to morbid obesity. Therefore, ureteroscopy, laser lithotripsy advised. Risks and complications of the procedure was reviewed with patient in detail including but not limited to infection, recurrence of sepsis, fever, ureteral renal injury , stricture formation, significant bleed, injury to adjacent organs, PE, DVT, NC. Questions encouraged and answered and patient and daughter desired to proceed without reservation. DESCRIPTION OF THE PROCEDURE: After an informed consent is signed, the patient is taken to the operating room, placed in a dorsal lithotomy position with the genital area prepped and draped in the usual surgical sterile fashion. A preoperative KUB demonstrates no obvious left ureteral stone fragment or debris ; however, there is a left lower pole stone nidus which is faintly visible. Her previous CT demonstrated a left proximal ureteral calculi at the level of L3. At this time, the bladder was entered which demonstrated unremarkable bladder mucosa. There is some bullous edema around the left ureter consistent with indwelling ureteral stent. The preexisting stent was removed to the level of the meatus and a 0.35 sensor wire was passed to the level of the upper pole. Stent was then completely removed and the wire secured. A rigid ureteroscopy was performed for staging demonstrating no evidence of distal ureteral calculi. The stone was able to be visualized at the level of L3 ureter with some bullous edema associated with the stone. It was somewhat adherent to the ureteral mucosa; however, we were able to render it free and the laser lithotripsied using 200 micron laser fiber at the setting. The stone as were fragmented, into a smaller piece in which I was able to negotiate the stone debris with a 0 tip nitinol basket atraumatically. She was passively dilated from a ureteral stent. With the proximal ureteral stone rendered free, we passed a 10 Polish dual-lumen access sheath via the working wire and a second safety wire was passed to the level of the left upper pole using a Super Stiff wire. We secured the sensor wire and through the Super Stiff wire an 11/13 Polish x 28 cm navigator was passed to the level of the proximal ureter with ease. Flexible ureteroscope was then negotiated through the working wire to the level of the upper pole. The stone was visualized in the lower pole, however, with 200 micron laser fiber, I was unable to laser lithotripsy the stone due to acute infundibular angle in which the stone was unable to be engaged. Therefore, using a 0 tip nitinol basket we negotiated the stone with the basket and was able to render free from the lower pole. Given its small size and she was passively dilated, we were able to retrieve this lower pole stone intact atraumatically through the sheath. Surveying of the ureter demonstrated no evidence of mucosal trauma or injury. A 6 x 24 double-J ureteral stent was then subsequently passed after the navigator removed over the working wire. All wires were removed and the ureteral stent was confirmed to be in proper position. Since the stones were rendered free, we left the dangler in situ which was taped to the patient's pubic symphysis. She will follow up with me next Saturday for stent pull on dangler. She is discharged with ciprofloxacin for a course of 7 days, AZO, Colace p.r.n. She is to continue her Myrbetriq for bladder spasms, which I provided enough supply on our last visit, [place] refill prescription provided #50. MTDD
[2018-01-29] MEDS ORDERED: Phenazopyridine HCl 97.5 MG TABLET ONE ×2 (13:47)
[2018-01-29] MEDS ORDERED: PROPOFOL 200 MG/20 ML VIAL ONE (15:49)
[2018-01-29] MEDS ORDERED: Lidocaine 1% PF 5 ML VIAL ONE (15:49)
[2018-01-29] MEDS ORDERED: Glycopyrrolate 0.2 MG/ML 5 ML SYRINGE ONE (15:49)
== END 2018-01-29 16:18 | disposition home or self-care (01) ==
LOC: SDC 08:18
PROVIDERS: ATTEND Urology
PROC: 0TF78ZZ Fragmentation in Left Ureter, Via Natural or Artificial Opening Endoscopic (ICD-10-PCS; principal; 2018-01-29)
PROC: 0T778DZ Dilation of Left Ureter with Intraluminal Device, Via Natural or Artificial Opening Endoscopic (ICD-10-PCS; principal; 2018-01-29)
DX: N20.1 Calculus of ureter (principal); E11.36 Type 2 diabetes mellitus with diabetic cataract; H91.93 Unspecified hearing loss, bilateral; F32.9 Major depressive disorder, single episode, unspecified; Z79.82 Long term (current) use of aspirin; Z79.4 Long term (current) use of insulin; Z79.899 Other long term (current) drug therapy; Z98.890 Other specified postprocedural states; Z87.442 Personal history of urinary calculi; Z87.440 Personal history of urinary (tract) infections
CPT/HCPCS: 36416; 74018; 74420; 82365; 88300; C1769; J2001; J2405; J2543; J2704; J3010; J7050; Q9961

== ENCOUNTER 2018-08-05 09:35 | Outpatient (CLI) | payer MEDICARE, MEDICAID ==
[2018-08-05 10:10] LABS: Bilirubin Negative (Negative); Blood, Urine Trace (Negative); Clarity Slightly Cloudy (Clear); Glucose, Urine (Dipstick) Negative (Negative); Leukocyte Moderate (Negative); Nitrite Positive (Negative); Protein, Urine (Dipstick) Trace mg/dL (Neg-Trace); Urobilinogen 0.2 mg/dL (0.2-1.0); pH, Urine 5.5 (5.0-9.0)
[2018-08-05 10:16] LABS: Specific Gravity, Urine 1.023 (1.002-1.036)
[2018-08-05 10:19] LABS: Bacteria/HPF 4+ HPF (None Seen); Squamous Epithelial 0-3 HPF (0-3)
[2018-08-05 10:36] LABS: Anion Gap 12 mmol/L (10-20); BUN (Urea Nitrogen) 8 mg/dL (9.8-20.1); Calc. Creatinine Clearance 0 mL/min (70-130); Calcium 8.8 mg/dL (7.8-10.44); Carbon Dioxide 29 mmol/L (23-31); Chloride 105 mmol/L (98-107); Estimated GFR-MDRD 71; Glucose 117 mg/dL (80-115); Sodium 142 mmol/L (136-145); Uric Acid 4.1 mg/dL (2.6-6.0)
--- NOTE | 2018-08-05 11:14 | ULT ---
RENAL ULTRASOUND: Date: 08-05-18 Provided Clinical History: History of renal stones. FINDINGS: Right kidney measures about 10.4 x 5.3 x 4.8 cm and demonstrates no evidence for hydronephrosis, sono graphically apparent calculus or mass. Left kidney measures about 10.3 x 5.6 x 4.9 cm and demonstrates no evidence for hydronephrosis, sonog raphically apparent calculus or mass. The urinary bladder is nondistended and not evaluated. IMPRESSION: No evidence for hydronephrosis. POS: [facility]
--- NOTE | 2018-08-05 11:18 | RAD ---
KUB: Date: 08-05-18 Provided Clinical History: History of kidney stones. FINDINGS: Comparison 01-29-18. The abdominal bowel gas pattern is nonspecific. Ureteral stent is no longer visualized. Calcification s overlying the pelvis appears similar to prior. No definite radiographically apparent urinary tract calculi. The osseous structures demonstrate no acute findings. IMPRESSION: No radiographically apparent urinary tract calculi. POS: [facility]
== END 2018-08-05 09:36 | disposition home or self-care (01) ==
LOC: SCSULT 09:35
PROVIDERS: ATTEND Urology
DX: N20.0 Calculus of kidney (principal); Z87.442 Personal history of urinary calculi
CPT/HCPCS: 36415; 74018; 76770; 80048; 81001; 83970; 84550; 87077; 87086; 87186

== ENCOUNTER 2020-05-12 09:02 | Outpatient (CLI) | payer MEDICARE, MEDICAID ==
--- NOTE | 2020-05-12 10:23 | CT ---
CT CHEST WITH IV CONTRAST: DATE: 05/12/2020. PROVIDED CLINICAL HISTORY: Lung nodule. FINDINGS: Comparison is made with multiple prior examinations dating back to the 06/04/2014. There is prominent caliber of the main pulmonary artery segments, measuring about 3.4 cm, similar to the adjacent ascending thoracic aorta. Vascular calcification including coronary calcium is demonstr ated. There is no evidence for thoracic lymph node enlargement. The airway appears patent and of normal caliber. Predominantly centrally fat density nodule at the posterior aspect of the left lung base is redemonst rated. This appears not significantly changed with respect to multiple prior examinations in terms o f size. This appears to be within the extrapleural fat rather within the lung parenchyma. The lung parenchyma appears free of significant opacity. There is no pleural fluid, pleural thickening, or pneumothorax apparent. The visualized portions of the upper abdomen demonstrate an unremarkable CT appearance. The osseous structures demonstrate no concerning lytic or blastic lesions. IMPRESSION: Predominantly fat density mass within the extrapleural fat of the left lung base, present for a numbe r of years dating back to the most remote prior examination available of 06/04/2014. The overall size of this fat density mass as decreased since the initial examination, though the peripheral density o f it has changed. 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 No concerning CT features are e vident. POS: [facility]
== END 2020-05-12 09:03 | disposition home or self-care (01) ==
LOC: SCSCT 09:02
PROVIDERS: ATTEND Nurse Practitioner Adult Health
DX: R91.1 Solitary pulmonary nodule (principal); R91.8 Other nonspecific abnormal finding of lung field
CPT/HCPCS: 71260; 82565